=== PATIENT | male | born 1990 | race Two or more races ===

== ENCOUNTER 2024-05-04 17:06 | Emergency (ER) | payer BC, SELFPAY ==
[2024-05-04 17:25] VITALS: BP 121/81
[2024-05-04 17:44] LABS: % Basophils 0.4 % (0-2); % Eosinophils 2.1 % (0-6); % Immature Granulocytes 0.2 % (0-0.5); % Neutrophils 64.3 % (42.2-75.2); Absolute Eosinophils 0.2 10^3/uL (0-0.7); Absolute Lymphocytes 2.4 10^3/uL (1.2-3.4); Absolute Monocytes 0.7 10^3/uL (0.1-0.6); Hematocrit 45.9 % (39.0-52.0); Hemoglobin 16.7 g/dL (13.0-18.0); Mean Corp Hgb Conc. 36.4 g/dL (33.0-37.0); Mean Corpuscular Volume 79.7 fL (80.0-94.0); Mean Platelet Volume 12.8 fL (7.4-10.4); Nucleated Red Blood Cells % 0 % (-); Platelet Count 205 10^3/uL (130-400); Red Blood Cell Count 5.76 10^6/uL (4.70-6.10); Red Cell Dist. Width 13.4 % (11.5-14.5); White Blood Cell Count 9.4 10^3/uL (4.8-10.8)
[2024-05-04 18:12] LABS: ALT (SGPT) 89 U/L (0-50); AST (SGOT) 44 U/L (17-59); Albumin 4.9 g/dl (3.5-5.0); Alkaline Phosphatase 82 U/L (38-126); Blood Urea Nitrogen 18 mg/dl (9-20); Carbon Dioxide 26 mmol/L (22-30); Chloride 101 mmol/L (98-107); Glucose 93 mg/dl (70-99); Potassium 4.7 mmol/L (3.5-5.1); Sodium 136 mmol/L (135-145); Total Bilirubin 0.9 mg/dl (0.2-1.3); eGFR > 60.00
[2024-05-04 18:14] LABS: Lipase 86 U/L (23-300)
[2024-05-04 19:53] VITALS: BP 116/87
[2024-05-04 20:00] VITALS: BP 117/90
[2024-05-04 20:06] VITALS: BP 116/87; BMI 26.1
--- NOTE | 2024-05-04 20:08 | ED.GENMED ---
History of Present Illness
General
Chief Complaint: Abdominal Pain
Source: patient
Exam Limitations: none
Time Seen by Provider: 05/04/24 19:26
History of Present Illness
History of Present Illness:
This is a 34 year old male that comes in with c/o left sided abd pain. Staes that this started yesterday evening. States that at first it seemed how he would sit affected the pain. Then last night he was unable to sleep and if he laid on his left
sided it did not hurt as much. States that today he was able to work but the pain has continued. Denies any fever, chills, chest pain, SOB, nausea, vomiting, diarrhea, headache, dizziness, urinary burning.
Past History
Past History
ED Past Medical History: GERD; Negative Asthma, HTN, Hypercholesterolemia or NIDDM
ED Past Surgical History: None
Social History
Tobacco: Non-smoker
Alcohol: None
Personal:
Living: with family
Employment: Employed
Review of Systems
Review of Systems
All Other Systems: ROS reviewed and negative except as documented in HPI and ROS
Constitutional: Reports no symptoms; Denies fever or chills
EENT: Reports no symptoms
Respiratory: Reports no symptoms; Denies cough or trouble breathing
Cardiac: Reports no symptoms; Denies chest pain
ABD/GI: Reports abdominal pain; Denies nausea, vomiting or diarrhea
: Reports no symptoms; Denies dysuria, frequency or urgency
Musculoskeletal: Reports no symptoms
Skin: Reports no symptoms
Neurological: Reports no symptoms; Denies dizzy or headache
Psychiatric: Reports no symptoms
Phy Exam
General Physical Exam
General Presentation: well appearing and no apparent distress
General age: appears stated age
General Skin: warm and dry
General Habitus: normal
General Mental: alert
General Hydration: appears well hydrated
ENT Exam
ENT Exam: TM's normal, pharynx normal and neck supple
Eye Exam
Eye Exam: EOMI
Cardiovascular Exam
Cardiovascular Exam: regular rate/rhythm, no edema, no murmur and normal peripheral pulses
Pulmonary Exam
Pulmonary Exam: lungs clear, no respiratory distress, no rales, chest non tender, no crackles, no rhonchi, no wheezing and no cough
Gastrointestinal Exam
Gastrointestinal Exam: normal bowel sounds, soft, no organomegaly, no pulsatile mass, non distended and tender (Left sided abd tenderness with palpation)
Musculoskeletal Exam
Musculoskeletal Exam: full ROM and no edema
Skin Exam
Skin Exam: normal color, warm/dry, no rash and no petechia
Psychiatric Exam
Psychiatric Exam: normal mood/affect
Course
Orders/Labs/Results
Orders:
Orders
05/04/24 17:36
CMP [Comprehensive Metabolic Panel] Urgent
Complete Blood Count/With Diff Urgent
Lipase Urgent
05/04/24 20:10
CT Abd/pelvis W Iv Cont Urgent
Comment:
Reason For Exam: Left sided abd pain
0.9% Sodium Chloride 1000 ml [Nss] 1,000 ml IV BOLUS
05/04/24 21:10
Urinalysis Reflex To Culture Urgent
Date Specimen was Collected: 05/04/24
Time Specimen was Collected: 21:08
Abnormal Lab Results
05/04/24
17:36
MCV 79.7 L fL
(80.0-94.0)
MPV 12.8 H fL
(7.4-10.4)
Absolute Monos (auto) 0.7 H 10^3/uL
(0.1-0.6)
ALT 89 H U/L
(0-50)
05/04/24 17:36
05/04/24 17:36
ALT mildly elevated. Lipase normal at 86
Vital Signs
Initial and Last Documented VS:
Initial Vital Signs
Temp Pulse Resp BP Pulse Ox
98.0 F 55 16 121/81 98
05/04/24 17:25 05/04/24 17:25 05/04/24 17:25 05/04/24 17:25 05/04/24 17:25
Last Documented Vital Signs
Temp Pulse Resp BP Pulse Ox
98.0 F 53 20 120/80 98
05/04/24 17:25 05/04/24 22:00 05/04/24 22:00 05/04/24 22:00 05/04/24 22:00
Shaft Headman consulted with Physician
Shaft Headman consulted with physician?: Yes
Name of Physician Consulted: Dr. Garcia
MDM/Problems Addressed
Differential Diagnosis Includes:
Diverticulitis. Renal calculus
MDM/Problems Addressed:
This is a 34 year old male that comes in with c/o left sided abd pain. States that this started yesterday and it is not going away. Last night he was unable to sleep due to the pain.
Will check labs and get CT scan. IV fluids and urine.
Back into see patient. Explained that his blood work shows that his ALT is elevated. His Lipase is normal along with his urine. Patient CT shows a small omental infarct. This is a very small area and the pain should stop on its own. Patient can use
Tylenol or Ibuprofen for pain. Follow up with the PCP. Return with any concerns.
Chronic conditions affecting care:
NA
Acute Exacerbation and/or Progression of Chronic Illness:
NA
*Radiology
Radiology exam reviewed: radiology read reviewed (CT- Suspect small left lower quadrant omentl infarct. No other significant acute abnormality identified in the abdomen or pelvis, as described above. )
*Pulse Oximetry
Patient hypoxic: no
*EKG
Interpreted by ED Provider?: NA
Rate: EKG- N/A
*Leadite Worker Interpretation
Rate: Leadite Worker- N/A
*Critical Care Note
Total Time (30-74mins, 75-104mins- exclusive of procedures): Not Applicable
ED Attending Note
-
Portions of this chart may have been created with voice recognition software.� Occasional wrong word or��sound alike� substitutions may have occurred due to the inherent limitations of voice recognition software.
Discharge Plan
Departure
Patient Disposition: Home (Routine Discharge)
Date of Disposition: 05/04/24
Time of Disposition: 23:14
Patient with high blood pressure during this ER visit?: No
Condition: Good
Covid-19: Not Applicable
Discharge Problem:
Abdominal pain, Omental infarction
Instructions: Abdominal Pain
Referrals:
Devon Washburn MD [Active] - Follow up in 2-3 days
NONE,* [Family Provider] -
Activity Restrictions/Additional Instructions:
As discussed, your blood work shows that your ALT is elevated. Otherwise your blood work is normal. Your urine is negative for infection. Your CT shows a very small omental infarct. This will get better on its own. Please follow up with the family
doctor for recheck. IF YOU HAVE FEVER, INCREASED PAIN, OR YOU HAVE ANY OTHER CONCERNS PLEASE RETURN TO THE EMERGENCY ROOM.
Interventions
Interventions:
*Risk Screen - Suicide Last Done: 05/04/24 20:06
*General Assessment Last Done: 05/04/24 20:06
*Neglect/Abuse Screening Last Done: 05/04/24 20:06
ED- Fall Risk Assessment Last Done: 05/04/24 20:06
*ED COVID-19 Vaccine History Last Done: 05/04/24 17:25
GK-Haukfj-Lwfqczzqao Assessment Last Done: 05/04/24 20:06
Discharge Date and Time
Print Language: DIVEHI
[2024-05-04] MEDS: NSS 1000 IV (20:37)
[2024-05-04 21:00] VITALS: BP 113/76
[2024-05-04 21:20] LABS: Urine Albumin Negative (Neg - Trace); Urine Bilirubin Negative (Negative); Urine Character Clear (Clear); Urine Color Yellow; Urine Glucose Negative (Negative); Urine Ketone Negative (Negative); Urine Leukocyte Negative (Negative); Urine Nitrite Negative (Negative); Urine Occult Blood Negative (Negative); Urine Urobilinogen Negative (Neg - 1+)
[2024-05-04 22:00] VITALS: BP 120/80
== END 2024-05-04 23:55 | disposition home or self-care (01) ==
LOC: EMR 17:06
PROVIDERS: Clinical Nurse Specialist Family Health; Emergency Medicine; EMERGENCY PHYSICIAN Student in an Organized Health Care Education/Training Program
DX: K55.069 Acute infarction of intestine, part and extent unspecified (principal); R10.9 Unspecified abdominal pain; K21.9 Gastro-esophageal reflux disease without esophagitis; Z91.013 Allergy to seafood
CPT/HCPCS: 99284; 96360; 74177; 80053; 81003; 83690; 85025; Q9967